=== PATIENT | female | born 1960 | race Caucasian/White ===

== ENCOUNTER 2016-12-27 06:56 | Emergency (ER) | payer OTHER ==
[2016-12-27 06:12] LABS: BASOPHILS 0.3 %; BASOPHILS ABSOLUTE 0.01 10/3/uL (0.0-0.16); EOSINOPHILS 0.3 %; EOSINOPHILS ABSOLUTE 0.01 10/3/uL (0.0-0.53); LYMPHOCYTES ABSOLUTE 0.99 10/3/uL (0.67-4.30); MEAN CORPUS HGB CONC 35.4 g/dL (32.0-36.0); MEAN PLATELET VOLUME 9.4 fL (9.2-13.0); MONOCYTES 12.4 %; MONOCYTES ABSOLUTE 0.44 10/3/uL (0.21-1.20); NEUTROPHILS ABSOLUTE 2.09 10/3/uL (2.02-8.40); PLATELET COUNT 159 10/3/uL (150-400); RBC DISTRIBUTION WIDTH 12.3 % (12.0-16.0); RED CELL COUNT 4.08 10/6/uL (4.0-5.6); WHITE BLOOD CELLS 3.5 10/3/uL (4.5-10.5)
[2016-12-27 06:14] LABS: ER CBC TAT 0 Hrs 06 MinsN; HEMATOCRIT 37.9 % (36.0-48.0); HEMOGLOBIN 13.4 g/dL (12.0-16.0); MANUAL DIFF NO %; MEAN CORPUSCULAR HEMOGLOB 32.8 pg (26.0-34.0); MEAN CORPUSCULAR VOLUME 92.9 fL (80-100)
[2016-12-27 06:25] LABS: CHLORIDE, SERUM 112 MMOL/L (96-112); CO2 (CARBON DIOXIDE) 23 MMOL/L (24-34); CREATININE 1.01 MG/DL (0.55-1.02); GFR AFRICAN AMERICAN 73 ML/MIN (>=60); GFR NON AFRICAN AMERICAN 63 ML/MIN (>=60); SODIUM, SERUM 144 MMOL/L (135-148)
[2016-12-27 06:26] LABS: BUN (BLOOD UREA NITROGEN) 12 MG/DL (6-23); CALCIUM, SERUM 9.8 MG/DL (8.5-10.4); GLUCOSE, SERUM 126 MG/DL (60-99)
[2016-12-27 06:38] LABS: ASCORBIC ACID (UR NOT ORDER) NEG (NEG); BILIRUBIN, URINE NEGATIVE (NEG); ER URINALYSIS TAT 0 Hrs 14 Mins; KETONE, URINE NEGATIVE (NEG); LEUKOCYTE ESTERASE(NOT OR NEG (NEG); NITRITE (URINE) POS (NEG); WBC (NOT ORDERED) (RFLEX) 5 (0-5)
[~2016-12-27 06:56] MED LIST: ADVIL PO; DIOV160 PO; LEVSINTAB PO; LIALDA1.2 GM PO; LIBRAX PO; LORTAB 5 PO; QUESLITE PO; SYN125 PO; VERELAN180 MG PO; XYZAL5 MG PO
[2017-04-22] MEDS ORDERED: AMB10 PO (17:20)
[2017-04-22] MEDS ORDERED: ATEN100 PO (17:20)
[2017-04-22] MEDS ORDERED: SYN.15 PO (17:20)
[2017-04-22] MEDS ORDERED: ZOFRAN8 PO (17:20)
[2017-04-22] MEDS ORDERED: ACET500CAP PO (17:21)
[2017-04-26] MEDS ORDERED: PEPCID40 MG PO (10:27)
[2017-04-26] MEDS ORDERED: LEVSINTAB SL (10:29)
[2017-04-26] MEDS ORDERED: FLORASTOR250 MG PO (10:29)
[2017-04-26] MEDS ORDERED: REMERON30 MG SL (10:30)
== END 2016-12-27 07:58 | disposition home or self-care (01) ==
LOC: ER 06:56
PROVIDERS: Specialist
DX: N13.2 Hydronephrosis with renal and ureteral calculous obstruction (principal); I10 Essential (primary) hypertension; Z88.8 Allergy status to other drugs, medicaments and biological substances; Z79.899 Other long term (current) drug therapy
CPT/HCPCS: 74176; 80048; 81001; 85025; 96374; 96375; 99284; J1170; J1885; J2405